=== PATIENT | male | born 1980 | race Two or more races ===

== ENCOUNTER 2019-10-29 01:03 | Emergency (ER) | payer SELFPAY ==
[~2019-10-29] VITALS: Ht 172.7 cm; Wt 81.0 kg
[2019-10-29] MEDS ORDERED: LIDOCAINE 1%/EPI 1:100,000 20 ML VIAL. INJ ONE (01:15)
[2019-10-29] MEDS ORDERED: TETANUS AND DIPHTHERIA TOX/PF 0.5 ML DISP.SYRIN. VAX IM ONE (01:15)
--- NOTE | 2019-10-29 01:36 | PHYS DOC ---
Past Medical History Past Medical History: No Pertinent History Past Surgical History: No Surgical History Smoking Status: Current Every Day Smoker Alcohol Use: None General Adult EDM: Chief Complaint: LACERATION/AVULSION HPI: HPI: The history was obtained from the patient. Patient is a 39-year-old male with no reported PMH who presents with a chief complaint of right lower extremity laceration. Patient states is prior to arrival he was walking downstairs with the lights off. He states he cut his leg against an unknown object. He thinks it was glass. Noted immediate bleeding. Unsure of last tetanus. Has been able to ambulate. Notes approximately 5 cm avulsion laceration to the mid tib-fib shaft. No other complaints. Review of Systems: Review of Systems: Constitutional: Denies fever or chills. [] Eyes: Denies change in visual acuity. [] HENT: Denies nasal congestion or sore throat. [] Respiratory: Denies cough or shortness of breath. [] Cardiovascular: Denies chest pain or edema. [] GI: Denies abdominal pain, nausea, vomiting, bloody stools or diarrhea. [] : Denies dysuria. [] Musculoskeletal: Denies back pain or joint pain. [] Integument: positive for laceration Neurologic: Denies headache, focal weakness or sensory changes. [] Endocrine: Denies polyuria or polydipsia. [] Lymphatic: Denies swollen glands. [] Psychiatric: Denies depression or anxiety. [] Heart Score: Risk Factors: Risk Factors: DM, Current or recent (<one month) smoker, HTN, HLP, family history of CAD, obesity. Risk Scores: Score 0 - 3: 2.5% MACE over next 6 weeks - Discharge Home Score 4 - 6: 20.3% MACE over next 6 weeks - Admit for Clinical Observation Score 7 - 10: 72.7% MACE over next 6 weeks - Early Invasive Strategies Current Medications: Current Medications Medications (Trade) Dose Ordered Sig/Yashira Start Time Stop Time Status Last Admin Dose Admin Lidocaine/ Epinephrine (LIDOCAINE 1%-EPI 1:100,000 Multi-Dose) 20 ml 1X ONCE 10/29/19 01:15 10/29/19 01:16 DC Tetanus/ Diphtheria Toxoids (Tenivac Syringe) 0.5 ml ONCE ONCE 10/29/19 01:15 9/3/20 01:16 DC Allergies: Allergies: Allergies Coded Allergies Type Severity Reaction Last Updated Verified No Known Drug Allergies 10/29/19 No Physical Exam: PE: Constitutional: Well developed, well nourished, no acute distress, non-toxic appearance. [] HENT: Normocephalic, atraumatic, bilateral external ears normal, oropharynx moist, no oral exudates, nose normal. [] Eyes: PERRLA, EOMI, conjunctiva normal, no discharge. [] Neck: Normal range of motion, no tenderness, supple, no stridor. [] Cardiovascular:Heart rate regular rhythm, no murmur [] Lungs & Thorax: Bilateral breath sounds clear to auscultation [] Abdomen: soft, no tenderness, no masses, no pulsatile masses. [] Skin: Warm, dry, no erythema, no rash. [] Back: No tenderness, no CVA tenderness. [] Extremities: 5 cm avulsion laceration noted to the mid tib-fib shaft anteriorly. No active bleeding noted. Knee extension intact. Clean wound. Neurologic: Alert and oriented X 3, normal motor function, normal sensory function, no focal deficits noted. [] Psychologic: Affect normal, judgement normal, mood normal. [] Current Patient Data: Vital Signs: Vital Signs Date Time Temp Pulse Resp B/P (MAP) Pulse Ox O2 Delivery O2 Flow Rate FiO2 10/29/19 01:18 97.5 80 16 144/81 (102) 98 Room Air 97.5 EKG: EKG: [] Radiology/Procedures: Radiology/Procedures: [] Laceration Repair: Obtained verbal consent from patient. Time out done prior to procedure. No sedation was required. 1 Laceration(s) to anterior tibial midshaft region. Sterile drape fashioned, following sterile procedure. Procedure: Laceration Repair Length: 5 cm Description: Avulsion Mechanism: Blunt object Shape: Avulsion Complex: No The wound area was prepped and draped in a sterile fashion. The wound area was anesthetized with 1% lidocaine The wound was explored with the following results clean wound. No tendon involvement or foreign bodies identified.. The wound was repaired with 11; 3 oh, nylon sutures were used. The wound was dressed cleanly. The patient tolerated the procedure well. Course & Med Decision Making: Course & Med Decision Making Pertinent Labs and Imaging studies reviewed. (See chart for details) [] Patient is a 39-year-old male who presents with chief complaint of right lower extremity laceration. Tetanus was updated. Plain film imaging reveals no retained foreign body or fracture. See procedure note for further details. Overall clean wound that was irrigated copiously. No indication for antibiotics. He was instructed to have sutures removed the next 5 to 7 days. Stable for discharge home. Dragon Disclaimer: Dragon Disclaimer: This electronic medical record was generated, in whole or in part, using a voice recognition dictation system. Departure Departure Impression: Primary Impression: Laceration of right lower leg Qualified Codes: S81.811A - Laceration without foreign body, right lower leg, initial encounter Disposition: HOME, SELF-CARE Condition: STABLE Patient Instructions: Laceration Care, Adult Additional Instructions: Please follow with your primary care physician in the next 5 to 7 days for sutur e removal. Justicifation of Admission Dx: Justifications for Admission: Justification of Admission Dx: N/A LUIS ALEJANDRA DO Oct 29, 2019 01:36
--- NOTE | 2019-10-29 01:48 | RAD ---
INDICATION: Reason: laceration R lower leg / Spl. Instructions: / History: COMPARISON: None. IMPRESSION: Right lower le views obtained. Soft tissue defect is seen anterior to the midshaft of the tibia. There is a small indentation of the anterior cortex of the tibia with a high density structure seen adjacent. This could be secondary to a small impaction fracture with adjacent fragment although this tiny high density focus could also be secondary to a tiny foreign body as well. Electronically signed by: Koffi Seymour MD (10/29/2019 1:45 AM) [id number]
[2019-10-29 01:55] VITALS: BP 132/71
== END 2019-10-29 01:55 | disposition home or self-care (01) ==
LOC: ER 01:03
DX: S81.811A Laceration without foreign body, right lower leg, initial encounter (principal); F17.200 Nicotine dependence, unspecified, uncomplicated; Y29.XXXA Contact with blunt object, undetermined intent, initial encounter; Y93.89 Activity, other specified; Y92.89 Other specified places as the place of occurrence of the external cause; Y99.8 Other external cause status
CPT/HCPCS: 12002; 73590; 90471; 90714; 99283; J3490